=== PATIENT | female | born 1995 | race Two or more races ===

== ENCOUNTER 2018-11-14 18:26 | Emergency (ER) | payer OTHER ==
[2018-11-14 18:36] VITALS: BP 117/84; PULSE 78; TEMP 97.8; BMI 22.3
--- NOTE | 2018-11-14 19:43 | PDOC ---
History of Present Illness - General Chief Complaint: Injury Stated Complaint: HAND INJURY Time Seen by Provider: 11/14/18 19:32 - History of Present Illness Initial Comments: 11/14/18 19:37 23-year-old female without comorbidities presents for evaluation of right wrist pain. 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 Past History - Past Medical History Allergies/Adverse Reactions: Allergies Allergy/AdvReac Type Severity Reaction Status Date / Time No Known Allergies Allergy Verified 11/14/18 18:36 Home Medications: Ambulatory Orders Acetaminophen W/ Codeine #3 [Tylenol # 3 -] 1 tab PO Q6H PRN 04/17/16 Ibuprofen [Motrin -] 600 mg PO QID PRN 04/17/16 Penicillin V Potassium [Pen Vee K -] 500 mg PO BID 04/17/16 COPD: No - Immunization History Immunization Up to Date: Yes - Suicide/Smoking/Psychosocial Hx Smoking History: Never smoked Information on smoking cessation initiated: No Hx Alcohol Use: No Drug/Substance Use Hx: No Review of Systems - Review of Systems Musculoskeletal: Yes: Joint Pain *Physical Exam - Vital Signs Last Vital Signs Temp Pulse Resp BP Pulse Ox 97.8 F 78 17 117/84 99 11/14/18 18:34 11/14/18 18:34 11/14/18 18:34 11/14/18 18:34 11/14/18 18:34 - Physical Exam Comments: 11/14/18 19:43 Right wrist skin color and temperature are normal range of motion is full. There is pain with terminal supination. No tenderness about the distal radius ulnar styloid, there is a negative axial grind. No tenderness about the anatomic snuffbox. No gross sensorimotor deficits neurovascularly intact. ED Treatment Course - RADIOLOGY Radiology Studies Ordered: Category Date Time Status WRIST- RIGHT [RAD] Stat Radiology 11/14/18 19:35 Ordered Medical Decision Making - Medical Decision Making 11/14/18 20:16 no fx widened DRUJ splint f/u with ortho *DC/Admit/Observation/Transfer Diagnosis at time of Disposition: Wrist contusion - Discharge Dispostion Disposition: HOME Condition at time of disposition: Stable Decision to Admit order: No - Referrals Referrals: Jim Mckinney DO [Staff Physician] - - Patient Instructions Printed Discharge Instructions: Contusion Additional Instructions: Please wear the wrist splint as directed. You may remove for hygiene. Follow-up with orthopedics in one to 2 days for further evaluation and treatment options. As directed for pain. Return to the emergency room for worsening symptoms. - Post Discharge Activity
== END 2018-11-14 20:49 | disposition home or self-care (01) ==
LOC: JERFT 18:26
PROC: 2W3CX1Z Immobilization of Right Lower Arm using Splint (ICD-10-PCS; principal; 2018-11-14)
DX: S60.211A Contusion of right wrist, initial encounter (principal); W22.8XXA Striking against or struck by other objects, initial encounter; Y93.89 Activity, other specified; Y92.512 Supermarket, store or market as the place of occurrence of the external cause; Y99.0 Civilian activity done for income or pay
CPT/HCPCS: 29125; 73110-TC-RT-FY; 99281-25